=== PATIENT | female | born 1985 | race American Indian/Alaskan Native ===

== ENCOUNTER 2017-03-08 10:34 | Emergency (ER) | payer SELFPAY ==
[2017-03-08 10:58] VITALS: BP 106/67
--- NOTE | 2017-03-08 12:37 | Emergency Department Report ---
HPI - General Chief Complaint: Extremity Injury, Upper Time Seen by Provider: 03/08/17 12:08 - HPI HPI: She was a 31-year-old female presents to ED complaining of right wrist pain 4 days. Patient states she [place] the [place] with her daughter when she fell on her buttock and propofol with the wrist. Patient states she noticed some pain shortly after incident. 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 Patient describes pain as localized to wrist throbbing aching in nature and worsening with certain movements. She denies fevers/chills/loss of sensation of the right wrist ED Past Medical Hx - Past Medical History Hx Hypertension: No Hx Heart Attack/AMI: No Hx Congestive Heart Failure: No Hx Diabetes: No Hx Deep Vein Thrombosis: No Hx Pulmonary Embolism: No Hx GERD: No Hx Liver Disease: No Hx Renal Disease: No Hx Sickle Cell Disease: No Hx Arthritis: No Hx Headaches / Migraines: No Hx Seizures: No Hx Kidney Stones: No Hx Psychiatric Treatment: No Hx Asthma: No Hx COPD: No Hx Tuberculosis: No Hx Dementia: No Hx HIV: No - Surgical History Hx Coronary Stent: No Hx Open Heart Surgery: No Hx Pacemaker: No Hx Cholecystectomy: No Hx Appendectomy: No - Social History Smoking Status: Never Smoker Substance Use Type: None - Medications Home Medications: Home Medications Medication Instructions Recorded Confirmed Last Taken Type Alive [employer] Mv Tablet 1 tab PO DAILY 05/12/15 05/12/15 05/10/15 History oxyCODONE /ACETAMINOPHEN [Percocet 1 tab PO Q6HR PRN #20 tablet 05/12/15 Unknown Rx 5/325] Cyclobenzaprine [Flexeril] 10 mg PO QHS PRN #20 tablet 03/08/17 Unknown Rx Ibuprofen [Motrin 800 MG tab] 800 mg PO Q8HR PRN #30 tablet 03/08/17 Unknown Rx ED Review of Systems ROS: Stated complaint: FALL, RIGHT WRIST INJURY Other details as noted in HPI Constitutional: denies: chills, fever Eyes: denies: eye pain, eye discharge, vision change ENT: denies: ear pain, throat pain Respiratory: denies: cough, shortness of breath, wheezing Cardiovascular: denies: chest pain, palpitations Endocrine: no symptoms reported Gastrointestinal: denies: abdominal pain, nausea, diarrhea Genitourinary: denies: urgency, dysuria, discharge Musculoskeletal: arthralgia, myalgia. denies: back pain, joint swelling Skin: denies: rash, lesions Neurological: denies: headache, weakness, paresthesias Psychiatric: denies: anxiety, depression Hematological/Lymphatic: denies: easy bleeding, easy bruising Physical Exam - Physical Exam Vital Signs: Vital Signs 03/08/17 10:55 Temperature 98 F Pulse Rate 89 Respiratory 18 Rate Blood Pressure 106/67 O2 Sat by Pulse 100 Oximetry Physical Exam: GENERAL: Alert and oriented x3, no apparent distress, Normal Gait, atraumatic. HEAD: Head is normocephalic and a-traumatic. NECK: Supple. Non edematous, No lymphadenopathy or thyromegaly. No C-spine tenderness LUNGS: Symetrical with respiration, No wheezing, no rales or crackles, CTAB. HEART: S1, S2 present, regular rate and rhythm without murmur, no rubs, no gallops. Non tender to palpatio EXTREMITIES/MUSCULOSKELETAL: No cyanosis, clubbing, rash, lesions or edema. UE Pulses 2+ bilaterally. UE 5+ strength bilaterally, right wrist mild tenderness to palpation., Non-erythematous, non-erythematous, no lesions noted NEUROLOGIC: The patient is cooperative with no focal neurologic deficits. . Normal speech. Normal sensation in bilateral upper and lower extremities, No loss of sensation, SKIN: Warm and dry, No lesions, No ulceration or induration present. ED Course Vital Signs 03/08/17 10:55 Temperature 98 F Pulse Rate 89 Respiratory 18 Rate Blood Pressure 106/67 O2 Sat by Pulse 100 Oximetry ED Medical Decision Making - Medical Decision Making 31-year-old female presents to ED with myalgia is status injuryt ED course: Wrist x-ray ordered Vital signs are normal patient is in no acute distress Discussed with patient follow-up with primary care physician. Discussed the patient and take medications as prescribed. Patient has no neurological deficit. Patient is alert and oriented 3 and understands all instructions given. Discussed drowsiness effect of Flexeril makes her drowsy and not to operate machinery while taking flexeril Critical care attestation.: If time is entered above; I have spent that time in minutes in the direct care of this critically ill patient, excluding procedure time. ED Disposition Clinical Impression: Wrist arthralgia, Wrist sprain Disposition: TO HOME OR SELFCARE Is pt being admited?: No Does the pt Need Aspirin: No Condition: Stable Instructions: Wrist Injury (ED), Wrist Sprain (ED) Additional Instructions: DMake sure to follow up with the primary care physician as discussed. Take all your medications as you've been prescribed. If you have any worsening symptoms or develop new symptoms please return to ED immediately. Prescriptions: Cyclobenzaprine [Flexeril] 10 mg PO QHS PRN #20 tablet PRN Reason: Muscle Spasm Ibuprofen [Motrin 800 MG tab] 800 mg PO Q8HR PRN #30 tablet PRN Reason: Pain Referrals: [facility] [Outside] - 3-5 Days [facility] [Outside] - 3-5 Days PRIMARY CARE, [Primary Care Provider] - 3-5 Days ADELSO GOLDBERG MD [Staff Physician] - 3-5 Days Forms: Work/School Release Form(ED) Time of Disposition: 13:32
--- NOTE | 2017-03-08 14:49 | XRay Report ---
RIGHT WRIST RADIOGRAPHS INDICATION: Pain and swelling. COMPARISON: None similar. FINDINGS: AP, lateral and oblique right wrist radiographs, 4 projections demonstrate intact carpal rows and also remainder imaged bones. Unremarkable soft tissues. CONCLUSION: Normal right wrist radiographs, as described. Thank you for the opportunity to participate in this patient's care.
== END 2017-03-08 13:49 | disposition home or self-care (01) ==
LOC: ED 10:34
DX: S63.501A Unspecified sprain of right wrist, initial encounter (principal); X58.XXXA Exposure to other specified factors, initial encounter; Y93.89 Activity, other specified; Y92.89 Other specified places as the place of occurrence of the external cause; Y99.8 Other external cause status
CPT/HCPCS: 99283

== ENCOUNTER 2017-04-08 18:47 | Emergency (ER) | payer OTHER ==
[2017-04-08 18:54] VITALS: BP 108/69
--- NOTE | 2017-04-09 00:06 | Emergency Department Report ---
ED Rash HPI - HPI Chief Complaint: Skin Rash Stated Complaint: RIGHT LEG PAIN Time Seen by Provider: 04/09/17 00:02 Duration: Today Location: Lower Extremities (right inner thigh) Rash Symptoms: Yes Itching, Yes Peeling, Yes Blistering, No Facial Swelling, No Tongue/Oral Swelling, No Breathing Difficulties, No Choking Sensation, No Wheezing/Dyspnea, No Fever, No Lightheaded, No Malaise, No Myalgias Severity: mild Other History: 31-year-old female past medical history? Shingles presents with complaint of lesion to right inner thigh which started 3 days ago painful itchy with blisters and small pustules clustered together. Patient denies fevers or chills awake alert and oriented 3. ED Review of Systems ROS: Stated complaint: RIGHT LEG PAIN Other details as noted in HPI Constitutional: denies: chills, fever Eyes: denies: eye pain, eye discharge, vision change ENT: denies: ear pain, throat pain Respiratory: denies: cough, shortness of breath, wheezing Cardiovascular: denies: chest pain, palpitations Endocrine: no symptoms reported Gastrointestinal: denies: abdominal pain, nausea, diarrhea Genitourinary: denies: urgency, dysuria, discharge Musculoskeletal: denies: back pain, joint swelling, arthralgia Skin: rash (right inner thoigh vesciles). denies: lesions Neurological: denies: headache, weakness, paresthesias Psychiatric: denies: anxiety, depression Hematological/Lymphatic: denies: easy bleeding, easy bruising ED Past Medical Hx - Past Medical History Previous Medical History?: No Hx Hypertension: No Hx Heart Attack/AMI: No Hx Congestive Heart Failure: No Hx Diabetes: No Hx Deep Vein Thrombosis: No Hx Pulmonary Embolism: No Hx GERD: No Hx Liver Disease: No Hx Renal Disease: No Hx Sickle Cell Disease: No Hx Arthritis: No Hx Headaches / Migraines: No Hx Seizures: No Hx Kidney Stones: No Hx Psychiatric Treatment: No Hx Asthma: No Hx COPD: No Hx Tuberculosis: No Hx Dementia: No Hx HIV: No - Surgical History Hx Coronary Stent: No Hx Open Heart Surgery: No Hx Pacemaker: No Hx Cholecystectomy: No Hx Appendectomy: No - Social History Smoking Status: Never Smoker Substance Use Type: None - Medications Home Medications: Home Medications Medication Instructions Recorded Confirmed Last Taken Type Alive Tamr Mv Tablet 1 tab PO DAILY 05/12/15 05/12/15 05/10/15 History oxyCODONE /ACETAMINOPHEN [Percocet 1 tab PO Q6HR PRN #20 tablet 05/12/15 Unknown Rx 5/325] Cyclobenzaprine [Flexeril] 10 mg PO QHS PRN #20 tablet 03/08/17 Unknown Rx Ibuprofen [Motrin 800 MG tab] 800 mg PO Q8HR PRN #30 tablet 03/08/17 Unknown Rx Acyclovir [Zovirax Tab] 400 mg PO Q8H #21 tab 04/09/17 Unknown Rx HYDROcodone/APAP 5-325 [[place] 1 each PO Q6HR PRN #12 tablet 04/09/17 Unknown Rx 5/325] Ibuprofen [Motrin] 800 mg PO Q8HR PRN #30 tablet 04/09/17 Unknown Rx Rash Exam - Exam General: Vital signs noted. No distress. Alert and acting appropriately. HEENT: No Periorbital Edema, No Conjuctival Injection, No Chemosis, No Perioral Edema, No Tongue Edema, No Uvular Edema, No Compromised Airway, No Drooling Lungs: Yes Good Air Exchange (Normal Breath Sounds), No Wheezes, No Ronchi, No Stridor, No Cough, No Labored Respirations, No Retractions, No Use of Accessory Muscles, No Other Abnormal Lung Sounds Heart: Yes Regular, No Murmur Front/Back of Body, Lg (Color): 1 - vesicular patch here Skin: Yes Maculopapular Rash (small cluster of vesicles approximately 2-3 cm patch right inner thigh region with slightly erythematous base. No palpable fluctuance.), No Urticarial Rash, No Morbilliform rash, No Bulla(e), No Excoriations, No Weeping, No Tenderness, No Erythema, No Edema, No Encrustations Other: Positive: Abdomen Normal, Neurologic Normal, Musculoskeletal Normal ED Course Vital Signs 04/08/17 18:52 Temperature 98.7 F Pulse Rate 91 H Respiratory 16 Rate Blood Pressure 108/69 O2 Sat by Pulse 100 Oximetry ED Medical Decision Making - Medical Decision Making A/P: Herpetic skin infection, shingles 1- course of acyclovir first shingles outbreak 2-I educated patient on signs and symptoms of shingles herpetic laureano and herpetic skin infections 3-Motrin when necessary, short course [place] when necessary 4-follow-up with primary care doctor and superintendent service Critical care attestation.: If time is entered above; I have spent that time in minutes in the direct care of this critically ill patient, excluding procedure time. ED Disposition Clinical Impression: Herpes simplex infection of skin Disposition: DC- TO HOME OR SELFCARE Is pt being admited?: No Does the pt Need Aspirin: No Condition: Stable Instructions: Herpes Zoster (ED) Prescriptions: Acyclovir [Zovirax Tab] 400 mg PO Q8H #21 tab HYDROcodone/APAP 5-325 [[place] 5/325] 1 each PO Q6HR PRN #12 tablet PRN Reason: Pain Ibuprofen [Motrin] 800 mg PO Q8HR PRN #30 tablet PRN Reason: Pain Referrals: [facility] [Provider Group] - 3-5 Days [facility] [Outside] - 3-5 Days [facility] [Outside] - 3-5 Days Time of Disposition: 00:05
== END 2017-04-09 00:20 | disposition home or self-care (01) ==
LOC: ED 18:47
DX: B00.9 Herpesviral infection, unspecified (principal); Z91.018 Allergy to other foods
CPT/HCPCS: 99282